=== PATIENT | female | born 1955 | race Caucasian/White ===

== ENCOUNTER 2018-09-16 08:31 | Emergency (ER) | payer SELFPAY ==
[2018-09-16 08:51] VITALS: TEMP 97
[2018-09-16] MEDS ORDERED: SODIUM CHLORIDE 0.9% (FLUSH) 10 ML SYG IV PRN (08:58)
[2018-09-16] MEDS ORDERED: ONDANSETRON INJ 4 MG/2 ML VIAL IV ONE (08:58)
[2018-09-16] MEDS ORDERED: SODIUM CHLORIDE 0.9% 1000ML 1,000 ML IVS ONE (08:58)
[2018-09-16] MEDS ORDERED: KETOROLAC TROMETHAMINE INJ 30 MG/ML VIAL IV ONE (08:59)
[2018-09-16] MEDS ORDERED: MECLIZINE HCL 12.5 MG TAB PO ONE (08:59)
--- NOTE | 2018-09-16 09:03 | ED.PDOC ---
History of Present Illness - General Chief Complaint: General Stated Complaint: Dizzy, lightheaded, nausea Time Seen by Provider: 09/16/18 08:58 Source: patient Exam Limitations: no limitations - History of Present Illness Initial Comments: PT PRESENTS TO THE ED WITH COMPLAINT OF HEADACHE, VERTIGO AND NAUSEA THAT BEGAN THIS AM UPON AWAKENING. PTS WAS CONCERNED ABOUT THE POSSIBILITY OF A STROKE. PT DENIES ANY WEAKNESS, PARESTHESIAS, FACIAL DROOP, CONFUSIONS, OR SLURRING OF SPEECH. PT HAS NO SIGNIFICANT PMH AND HAS NO PCP. Timing/Duration: 1-3 hours Severity: moderate Improving Factors: immobilization Worsening Factors: movement Associated Symptoms: headaches, nausea/vomiting Allergies/Adverse Reactions: Allergies NO KNOWN ALLERGY Allergy (Verified 09/16/18 08:51) Home Medications: Ambulatory Orders Meclizine HCl [Meclizine 25] 50 mg PO Q6HR PRN #24 tab 09/16/18 Ondansetron Odt [Zofran ODT] 8 mg PO TID PRN #15 tab 09/16/18 Review of Systems - Review of Systems Constitutional: Denies: chills, fever EENTM: States: ear pain. Denies: nose congestion Respiratory: Denies: cough, short of breath Cardiology: Denies: chest pain, palpitations Gastrointestinal/Abdominal: States: nausea. Denies: abdominal pain, vomiting Genitourinary: Denies: dysuria, frequency Musculoskeletal: Denies: joint pain, joint swelling Skin: Denies: dryness, lesions Neurological: States: headache. Denies: paresthesia, weakness Endocrine: States: no symptoms reported Hematologic/Lymphatic: States: no symptoms reported Past Medical History (General) - Patient Medical History Hx Stroke: No Hx of COPD: No Hx Cardiac Disorders: No Hx Hypertension: No Hx Diabetes: No Hx Cancer: No Surgical History: no surgical history - Vaccination History Hx Influenza Vaccination: No Hx Pneumococcal Vaccination: No - Social History Hx Tobacco Use: Yes Hx Alcohol Use: Yes Hx Depression: No - Female History Patient is a Female of Child Bearing Age (10 -59 yrs old): No Patient : No Family Medical History - Family History Mother Family History: Unknown - Living Status: Unknown Physical Exam - Physical Exam General Appearance: Alert, No apparent distress, Well Developed, Well Groomed, Well Hydrated, Well Nourished Eye Exam: bilateral normal Ears, Nose, Throat: hearing grossly normal, normal ENT inspection Neck: non-tender, full range of motion, supple Respiratory: lungs clear, normal breath sounds, no respiratory distress Cardiovascular/Chest: regular rate, rhythm, no murmur Gastrointestinal/Abdominal: non tender, soft Neurologic: no motor/sensory deficits, alert, normal mood/affect, oriented x 3 Skin Exam: normal color, warm/dry Progress - Progress Progress: 09/16/18 10:30 PT REPORTS SIGNIFICANT IMPROVEMENT IN SYMPTOMS AFTER ZOFRAN AND MECLIZINE. LABS AND DIAGNOSTICS DISCUSSED. DISCUSSED IMPORTANCE OF MONITORING BP AT HOME AND KEEPING A LOG. RECOMMENDED FOLLOW UP WITH A PCP REGARDING ELEVATED BP READINGS HERE IN THE ED. - Results/Orders Results/Orders: Laboratory Tests 09/16/18 09/16/18 09/16/18 09:00 09:00 09:00 WBC 4.5 L RBC 4.82 Hgb 14.3 Hct 41.5 MCV 86.2 MCH 29.7 MCHC 34.4 RDW 13.6 Plt Count 256 MPV 6.9 L Absolute Neuts (auto) 2.20 Absolute Lymphs (auto) 1.80 Absolute Monos (auto) 0.40 Absolute Eos (auto) 0.10 Absolute Basos (auto) 0.00 Neutrophils % 49.1 Lymphocytes % 39.4 Monocytes % 7.9 Eosinophils % 2.8 Basophils % 0.8 Sodium 141 Potassium 3.7 Chloride 106 Carbon Dioxide 25 Anion Gap 13.7 BUN 15 Creatinine 1.01 BUN/Creatinine Ratio 14.9 Random Glucose 113 H Serum Osmolality 282.9 Calcium 9.9 Total Bilirubin 0.8 Direct Bilirubin < 0.1 Indirect Bilirubin 0.7 AST 27 ALT 44 Alkaline Phosphatase 65 Serum Total Protein 7.8 Albumin 4.5 Urine Color Urine Appearance Urine pH Ur Specific Lyndon Urine Protein Urine Glucose (UA) Urine Ketones Urine Blood Urine Nitrite Urine Bilirubin Urine Urobilinogen Ur Leukocyte Esterase Urine RBC Urine WBC Ur Epithelial Cells Urine Bacteria 09/16/18 10:15 WBC RBC Hgb Hct MCV MCH MCHC RDW Plt Count MPV Absolute Neuts (auto) Absolute Lymphs (auto) Absolute Monos (auto) Absolute Eos (auto) Absolute Basos (auto) Neutrophils % Lymphocytes % Monocytes % Eosinophils % Basophils % Sodium Potassium Chloride Carbon Dioxide Anion Gap BUN Creatinine BUN/Creatinine Ratio Random Glucose Serum Osmolality Calcium Total Bilirubin Direct Bilirubin Indirect Bilirubin AST ALT Alkaline Phosphatase Serum Total Protein Albumin Urine Color Yellow Urine Appearance Clear Urine pH 7.0 Ur Specific Lyndon 1.015 Urine Protein Negative Urine Glucose (UA) Negative Urine Ketones Negative Urine Blood Trace-intact H Urine Nitrite Negative Urine Bilirubin Negative Urine Urobilinogen 0.2 Ur Leukocyte Esterase Negative Urine RBC 0 Urine WBC 0-1 Ur Epithelial Cells 1-3 Urine Bacteria Rare Departure - Departure Clinical Impression: Benign positional vertigo, Nausea, HTN (hypertension) Time of Disposition: 10:34 Disposition: Discharge to Home or Self Care Condition: Good Departure Forms: ED Discharge - Pt. Copy, Patient Portal Self Enrollment Instructions: Vertigo (a Type of Dizziness) (DC), High Blood Pressure (DC) Referrals: [facility] [Provider Group] - 1-5 Days Prescriptions: Meclizine HCl [Meclizine 25] 50 mg PO Q6HR PRN #24 tab PRN Reason: Dizziness Ondansetron Odt [Zofran ODT] 8 mg PO TID PRN #15 tab PRN Reason: Nausea/Vomiting Home Medications: Ambulatory Orders Meclizine HCl [Meclizine 25] 50 mg PO Q6HR PRN #24 tab 09/16/18 Ondansetron Odt [Zofran ODT] 8 mg PO TID PRN #15 tab 09/16/18
[2018-09-16 10:52] VITALS: BP 177/103; O2SAT 99
== END 2018-09-16 10:45 | disposition home or self-care (01) ==
LOC: ER 08:31
DX: H81.10 Benign paroxysmal vertigo, unspecified ear (principal); I10 Essential (primary) hypertension; Z87.891 Personal history of nicotine dependence
CPT/HCPCS: 36415; 80048; 80076; 81001; 85025; J1885; J2405; J7030